=== PATIENT | male | born 1950 | race Caucasian/White ===

== ENCOUNTER → 2017-03-26 | Outpatient (CLI) | payer MEDICARE, OTHER ==
[2017-03-26 10:54] LABS: Blood Urea Nitrogen 15 mg/dL (9-20); Non-African American GFR(MDRD) >60 (>60 ml/min/1.73 sqM)
--- NOTE | 2017-03-26 12:20 | CT ---
EXAMINATION TYPE: CT soft tissue neck w con DATE OF EXAM: 03/26/2017 COMPARISON: NONE HISTORY: Patient complains of dysphagia, hoarseness of voice, drainage into neck, and generalized ant erior neck tenderness. CT DLP: 504.4 mGycm CONTRAST: Patient injected with 100 mL of Omnipaque 300. TECHNIQUE: Axial images at 3 mm thick sections. Reconstructed images in the coronal plane and sagitt al plane are reviewed. FINDINGS: Limited CT sections are obtained the lung apices. The lung apices appear clear. Aortopulmo lesa window appears clear. CT neck: The torus tubarius and fossa of Rosenmuller are normal. [employer] spaces are normal. Para nasal sinuses and mastoid air cells are clear. Parotid glands appear normal and symmetrical. Submandibular glands, are normal. Parapharyngeal spac es are normal. No suspicious adenopathy is evident. There is some fullness within the left aspect of the vallecula. This could be further evaluated with direct visualization There is subtle deviation of the anterior portion of the right vocal cord no underlying mass is ident ified. Direct visualization is recommended. Series 3 image 31 Thyroid as visualized is normal. Osseous structures are normal. Note is made of facet hypertrophy within the cervical spine. IMPRESSIONS: 1. Asymmetry within the anterior right portion of the vocal cord. Direct visualization could be perfo rmed. No underlying masses are evident. 2. Some fullness within the posterior left vallecula compared to the right. This could be evaluated w ith direct visualization.
== END | disposition home or self-care (01) ==
LOC: RADCTMAIN 10:14
PROVIDERS: ATTEND Otolaryngology
DX: J38.3 Other diseases of vocal cords (principal)
CPT/HCPCS: 82565; 84520; 70491; 36415; Q9967

== ENCOUNTER 2017-04-26 08:56 | Day surgery (SDC) | payer MEDICARE, OTHER ==
[2017-04-23 09:03] VITALS: BMI 36.6
[~2017-04-26 08:56] MED LIST: DEXAMETHASONE SOD PHOSPHATE 4 MG/ML 1 ML VIAL IV ONE; FAMOTIDINE 20 MG/2 ML VIAL IV ONE; HYDROmorphone 0.5 MG/0.5 ML SYRINGE IVP PRN; LACTATED RINGERS 1,000 ML IV SCH; MIDAZOLAM 2 MG/2 ML VIAL IV PRN; ONDANSETRON 4 MG/2 ML VIAL IVP ONE; ceFAZolin 1,000 MG in DEXTROSE/WATER 1 50ML.BAG IV ONE
[2017-04-26 09:42] VITALS: TEMP 98
[2017-04-26] MEDS ORDERED: LIDOCAINE 1% 20 ML VIAL (10MG/ML) FOR IV START INTRADERMA ONE (09:53)
[2017-04-26 10:18] LABS: Glucose,Whole Blood 140 mg/dL (75-99)
[2017-04-26] MEDS ORDERED: fentaNYL (PF) 50 MCG/ML 2 ML AMP ONE (10:34)
[2017-04-26] MEDS ORDERED: LIDOCAINE 1% INJ 10MG/ML (20 ML MDV) ONE (10:34)
[2017-04-26] MEDS ORDERED: PROPOFOL 10 MG/ML 20 ML VIAL IV ONE (10:34)
[2017-04-26] MEDS ORDERED: SUCCINYLCHOLINE CHLORIDE 100 MG/5 ML SYR IV ONE (10:34)
[2017-04-26] MEDS ORDERED: MIDAZOLAM 2 MG/2 ML VIAL ONE (10:34)
--- NOTE | 2017-04-26 10:55 | P.OP ---
Date of Procedure: 04/26/17 Preoperative Diagnosis: Hoarseness Lingual tonsillar hypertrophy Postoperative Diagnosis: Same Procedure(s) Performed: Direct microlaryngoscopy with biopsy left lingual tonsils Anesthesia: STEVIE Surgeon: Tico Shrestha Estimated Blood Loss (ml): 3 Pathology: other (Left-sided lingual tonsil) Condition: stable Disposition: PACU Indications for Procedure: This is a 66-year-old white male whose had difficulties with intermittent hoarseness as well as sore throats. CT showed nodular area on the right vocal cord and some fullness in the left vallecula although flexible laryngoscopy did not reveal any focal lesions on the vocal cords. There was more diffuse lingual tonsillar hypertrophy on flexible laryngoscopy Operative Findings: Diffuse lingual tonsillar hypertrophy although left greater than right and therefore biopsies were taken of the left-sided lingual tonsils, no laryngeal lesions were noted Description of Procedure: The patient was brought in the operative suite and placed in a supine position. The patient underwent induction of general anesthesia with oral endotracheal intubation without difficulty. The patient was prepped and draped in usual aseptic fashion. A gum guard was placed. Direct laryngoscopy was performed with systematic evaluation of the base of tongue vallecula both piriform sinuses post cricoid area and endolarynx. With the larynx in good visualization the suspension was placed and Zeiss microscope was used to evaluate the vocal cords and no abnormalities were noted. Therefore no biopsies were taken of the vocal cords. The laryngoscope was then repositioned at the base of tongue after inspection and palpation and the lingual tonsils were diffusely hypertrophy although a little bit more on the left and the right and therefore multiple microcup forceps biopsies were taken of the left lingual tonsils. Hemostasis was gained spontaneously. The patient was suctioned in the oropharynx hypopharynx and larynx. There was good hemostasis. The laryngoscope and tooth guard were removed. The patient was allowed to emerge from general anesthesia having tolerated procedure well was extubated in the operating suite and transferred to postop recovery area in satisfactory condition.
[2017-04-26] MEDS ORDERED: LACTATED RINGERS 1,000 ML IV ONE (11:43)
[2017-04-26 11:51] VITALS: RESP 16
[2017-04-26 12:04] VITALS: BP 122/65; PULSE 80
[2017-04-26 12:08] LABS: Glucose,Whole Blood 153 mg/dL (75-99)
== END 2017-04-26 12:33 | disposition home or self-care (01) ==
LOC: OR 08:56
PROVIDERS: ATTEND Otolaryngology
DX: J35.01 Chronic tonsillitis (principal); R49.0 Dysphonia; M19.90 Unspecified osteoarthritis, unspecified site; R42 Dizziness and giddiness; L30.9 Dermatitis, unspecified; J44.9 Chronic obstructive pulmonary disease, unspecified; M10.9 Gout, unspecified; H91.90 Unspecified hearing loss, unspecified ear; I25.2 Old myocardial infarction; H93.19 Tinnitus, unspecified ear; E11.9 Type 2 diabetes mellitus without complications; E07.9 Disorder of thyroid, unspecified; Z79.84 Long term (current) use of oral hypoglycemic drugs; Z79.1 Long term (current) use of non-steroidal anti-inflammatories (NSAID); Z79.82 Long term (current) use of aspirin; Z79.899 Other long term (current) drug therapy; Z88.5 Allergy status to narcotic agent; Z87.891 Personal history of nicotine dependence
CPT/HCPCS: 31536; 88305; J2250; J1100; J2405; J2001; J3010; J0330; J2704

== ENCOUNTER 2018-12-14 12:44 | Emergency (ER) | payer MEDICARE, OTHER ==
[2018-12-14 12:50] VITALS: BP 131/82; PULSE 87; RESP 18; TEMP 97.6
[2018-12-14] MEDS ORDERED: DIPH,PERTUS(ACELL)TETVAC-LF 0.5 ML VIAL IM ONE (13:19)
[2018-12-14] MEDS ORDERED: GELATIN SPONGE,ABSORB (LARGE) 1 EACH SPONGE TOPICAL STA (13:19)
--- NOTE | 2018-12-14 13:26 | ED ---
Wound/Laceration HPI - General Chief Complaint: Wound/Laceration Stated Complaint: Finger Injury/Lac Time Seen by Provider: 12/14/18 13:12 Source: patient, RN notes reviewed Mode of arrival: ambulatory Limitations: no limitations - History of Present Illness Initial Comments: 68-year-old male presents emergency Department chief complaint of laceration to his right hand third digit. Patient states that he is using a internal grinder tender and states that he looked like he got some discomfort in the driveway and states that he caught the internal grinder tender with his finger. Patient states he is unsure when his last tetanus was. He states there is a large amount of bleeding which has subsided at this time. Patient states that he removed from the skin on his distal finger. Patient's full range of motion no paresthesias. - Related Data Home Medications Medication Instructions Recorded Confirmed Levothyroxine Sodium [Synthroid] 75 mcg PO DAILY 02/05/15 04/26/17 Cyclobenzaprine [Flexeril] 5 mg PO HS 04/23/17 04/26/17 metFORMIN HCL [Glucophage] 500 mg PO BID 04/23/17 04/26/17 Allergies Allergy/AdvReac Type Severity Reaction Status Date / Time propoxyphene HCl AdvReac Unknown Nausea & Verified 12/14/18 12:51 [From Darvon] Vomiting Review of Systems ROS Statement: Those systems with pertinent positive or pertinent negative responses have been documented in the HPI. ROS Other: All systems not noted in ROS Statement are negative. Past Medical History Past Medical History: Diabetes Mellitus, Musculoskeletal Disorder, Thyroid Disorder Additional Past Medical History / Comment(s): PAST HX OF COPD, HAS 3 TUMORS IN HIS BACK., HEARING LOSS 45-50% IN BOTH EARS. History of Any Multi-Drug Resistant Organisms: None Reported Past Surgical History: Appendectomy, Cholecystectomy, Orthopedic Surgery Additional Past Surgical History / Comment(s): LEFT KNEE ARTHROSCOPY, RIGHT SHOULDER ARTHROSCOPY Past Anesthesia/Blood Transfusion Reactions: No Reported Reaction Past Psychological History: No Psychological Hx Reported Smoking Status: Former smoker Past Alcohol Use History: None Reported Past Drug Use History: None Reported - Past Family History Father Family Medical History: Cancer Mother Family Medical History: Cancer General Exam Limitations: no limitations General appearance: alert, in no apparent distress Head exam: Present: atraumatic, normocephalic, normal inspection Respiratory exam: Present: normal lung sounds bilaterally. Absent: respiratory distress, wheezes, rales, rhonchi, stridor Cardiovascular Exam: Present: regular rate, normal rhythm, normal heart sounds. Absent: systolic murmur, diastolic murmur, rubs, gallop, clicks Extremities exam: Present: other (Right hand third digit there is 2 cm x 1 cm skin avulsion at the distal tip with minimal active bleeding neurovascular intact Refill less than 2 seconds) Course Vital Signs 12/14/18 12:47 Temperature 97.6 F Pulse Rate 87 Respiratory 18 Rate Blood Pressure 131/82 O2 Sat by Pulse 97 Oximetry Medical Decision Making - Medical Decision Making 68-year-old male presented for finger laceration. He had a noted skin avulsion, Gelfoam was applied, patient's tetanus is updated. Disposition Clinical Impression: Avulsion of skin of finger Disposition: HOME SELF-CARE Condition: Stable Instructions (If sedation given, give patient instructions): Skin Avulsion (ED) Additional Instructions: Please return to the Emergency Department if symptoms worsen or any other concerns. Is patient prescribed a controlled substance at d/c from ED?: No Referrals: Elisa Acosta MD [Primary Care Provider] - 1-2 days Time of Disposition: 13:25
== END 2018-12-14 13:45 | disposition home or self-care (01) ==
LOC: EC 12:44
DX: S61.202A Unspecified open wound of right middle finger without damage to nail, initial encounter (principal); E11.9 Type 2 diabetes mellitus without complications; E07.9 Disorder of thyroid, unspecified; H91.90 Unspecified hearing loss, unspecified ear; Z87.891 Personal history of nicotine dependence; Z23 Encounter for immunization; Z90.49 Acquired absence of other specified parts of digestive tract; Z98.890 Other specified postprocedural states; Z79.84 Long term (current) use of oral hypoglycemic drugs; Z79.890 Hormone replacement therapy; Z79.899 Other long term (current) drug therapy; Z88.5 Allergy status to narcotic agent; W29.0XXA Contact with powered kitchen appliance, initial encounter; Y93.89 Activity, other specified
CPT/HCPCS: 90471; 90715; 99282

== ENCOUNTER → 2019-05-25 | Outpatient (CLI) | payer MEDICARE, OTHER | END | disposition home or self-care (01) | LOC: LABPAT 09:37 | PROVIDERS: ATTEND Orthopaedic Surgery | DX: Z01.812 Encounter for preprocedural laboratory examination (principal) | CPT/HCPCS: 87070 ==

== ENCOUNTER → 2019-06-01 | Outpatient (CLI) | payer MEDICARE, OTHER ==
--- NOTE | 2019-06-01 08:45 | XR ---
EXAMINATION TYPE: XR chest 2V DATE OF EXAM: 06/01/2019 COMPARISON: 07/26/2014 TECHNIQUE: PA and lateral views submitted. HISTORY: Presurgical FINDINGS: The lungs are clear and there is no pneumothorax, pleural effusion, or focal pneumonia. Hypertrophi c and degenerative changes of the spine. Heart size normal. No overt failure. Pleural-based thickenin g along the lower lobes bilaterally greater on the left are noted. Chronic rib deformity not excluded . Findings similar to prior exam. IMPRESSION: 1. No acute process.
== END | disposition home or self-care (01) ==
LOC: LABPAT 07:29
PROVIDERS: ATTEND Family Medicine
DX: Z01.818 Encounter for other preprocedural examination (principal)
CPT/HCPCS: 71046

== ENCOUNTER 2019-06-13 09:12 | Day surgery (SDC) | payer MEDICARE, OTHER ==
[2019-06-08 13:42] VITALS: BMI 36.4
--- NOTE | 2019-06-12 10:15 | HP ---
HISTORY AND PHYSICAL CHIEF COMPLAINT: Left knee pain. HISTORY OF PRESENT ILLNESS: The patient is a 68-year-old retired male who presents with progressive left knee pain secondary to osteoarthrosis for the past year. It has worsened recently. He has pain with any weightbearing activities. He notes the pain and stiffness along with swelling. He has tried medications with partial temporary relief. PAST MEDICAL HISTORY: Significant for COPD, type 2 diabetes, hypothyroidism, hypertension, neurofibromatosis, and osteoarthrosis. PAST SURGICAL HISTORY: Significant for carpal tunnel release, appendectomy, cholecystectomy, right shoulder arthroscopy. MEDICATIONS: Current medications include: 1. Metformin. 2. Levothyroxine. 3. Trulicity. 4. Lisinopril. ALLERGIES: He notes sensitivity to DARVON, however, no susu drug allergies. FAMILY HISTORY: Significant for cancer. SOCIAL HISTORY: Significant for previous heavy tobacco use; however, he quit in 2008. REVIEW OF SYSTEMS: Sixteen-point review of systems otherwise reviewed and is noncontributory. PHYSICAL EXAMINATION: On examination, the patient is approximately 5 feet 5 inches, 225 pounds of endomorphic habitus. HEENT exam is nonfocal. Neck is supple. He has painless passive motion of his left hip. Straight leg raise is negative. Active motion left knee -12 to 85 degrees of flexion. He has mild effusion. He is tender about the medial joint line. Collaterals are stable, Mat is negative, Mikel's is equivocal. He has genu varum alignment. His distal neurovascular exam appears intact in the left lower extremity. X-rays to include weightbearing notch lateral and Merchant views left knee obtained in the office show severe medial compartment osteoarthrosis with chondrocalcinosis of the medial and lateral compartments. IMPRESSION: 1. Left knee severe medial and patellofemoral compartment osteoarthrosis. 2. Left knee pseudogout. 3. Vbf-cesuqag-aehpfndqb diabetes. 4. History of chronic obstructive pulmonary disease. 5. Neurofibromatosis. RECOMMENDATIONS: I talked to the patient at length regarding his condition and treatment options. At this point, he is quite symptomatic and limited because of his osteoarthrosis despite conservative treatment. After a thorough discussion, he opts to proceed with surgery. We will plan to proceed with left total knee arthroplasty. Risks and benefits were discussed at length in layman's terms. We will institute DVT prophylaxis postoperatively. MMODL / IJN: [id number] /
[~2019-06-13 09:12] MED LIST changes: +ACETAMINOPHEN TAB 500 MG TAB PO ONE; +DEXAMETHASONE SOD PHOSPHATE 10 MG/ML 1 ML VIAL IV ONE; -DEXAMETHASONE SOD PHOSPHATE 4 MG/ML 1 ML VIAL IV ONE; -FAMOTIDINE 20 MG/2 ML VIAL IV ONE; +LIDOCAINE 1% 20 ML VIAL (10MG/ML) FOR IV START INTRADERMA PRN; +MELOXICAM 7.5 MG TAB PO ONE; +ROPIVACAINE 246.25 MG, EPINEPHrine 0.5 MG, KETOROLAC 30 MG, cloNIDine HCL/PF 80 MCG, WA... MISCELLANE ONE; +SCOPOLAMINE 1.5MG/72HR PATCH TRANSDERM ONE; +TRANEXAMIC ACID 1,000 MG in SODIUM CHLORIDE 0.9% 100 ML IVPB ONE; -ceFAZolin 1,000 MG in DEXTROSE/WATER 1 50ML.BAG IV ONE
[2019-06-13 09:50] LABS: Glucose,Whole Blood 190 mg/dL (75-99)
[2019-06-13] MEDS ORDERED: fentaNYL (PF) 50 MCG/ML 2 ML AMP IV ONE (10:00)
[2019-06-13] MEDS ORDERED: ROPIVACAINE 246.25 MG, EPINEPHrine 0.5 MG, KETOROLAC 30 MG, cloNIDine HCL/PF 80 MCG, WA... MISCELLANE ONE ×5 (10:06)
[2019-06-13] MEDS ORDERED: fentaNYL (PF) 50 MCG/ML 2 ML AMP ONE (10:48)
[2019-06-13] MEDS ORDERED: diphenhydrAMINE 50 MG/ML 1 ML VIAL ONE (10:48)
[2019-06-13] MEDS ORDERED: SODIUM CHLORIDE 0.9% 100 ML BAG ONE (10:48)
[2019-06-13] MEDS ORDERED: MIDAZOLAM 2 MG/2 ML VIAL ONE (10:48)
[2019-06-13] MEDS ORDERED: TRANEXAMIC ACID 1,000 MG/10 ML VIAL ONE (10:48)
[2019-06-13] MEDS ORDERED: PROPOFOL 10 MG/ML 20 ML VIAL IV ONE (10:48)
[2019-06-13] MEDS ORDERED: LACTATED RINGERS 1,000 ML IV ONE (11:15)
[2019-06-13] MEDS ORDERED: ROPIVACAINE 0.2%-NS ON-Q PUMP 1,090 MG, EMPTY PAIN BALL 1 EACH MISCELLANE PRN (12:21)
--- NOTE | 2019-06-13 12:21 | P.ANPRN ---
Procedure Note - Anesthesia - Nerve Block Performed Left Adductor Canal Infusion Time Out Performed: Yes ([id number]) Date of Procedure: 06/13/19 Procedure Start Time: 10:00 Procedure Stop Time: 10:06 Location of Patient: PreOp Indication: Acute Post-Operative Pain, Requested by Surgeon Specifically requested for management of pain by : Judah Quevedo Sedation Type: Sedate with meaningful contact maintained Preparation: Sterile Prep Position: Supine Catheter Depth at Skin (cm): 6 Catheter: Indwelling Needle Types: Pajunk Needle Gauge: 20 Ultrasound used to visualize needle placement: Yes Ultrasound used to observe medication spread: Yes Injectate: 0.5% Ropivacaine (see comment for volume) (20cc) Pain Paresthesia on Injection Noted: No Resistance on Injection: Normal Image Stored and Saved: Yes Events: Uneventful and Well Tolerated
[2019-06-13] MEDS ORDERED: HYDROmorphone 0.5 MG/0.5 ML SYRINGE IVP PRN (12:39)
[2019-06-13] MEDS ORDERED: MAGNESIUM HYDROXIDE 2,400 MG/10 ML CUP PO PRN (12:39)
[2019-06-13] MEDS ORDERED: ONDANSETRON 4 MG/2 ML VIAL IVP PRN (12:39)
[2019-06-13] MEDS ORDERED: NALOXONE 0.4 MG/ML 1 ML VIAL IV PRN (12:39)
[2019-06-13] MEDS ORDERED: traMADol 50 MG TAB PO PRN (12:39)
[2019-06-13] MEDS ORDERED: HYDROcodone/APAP 5-325MG 1 EACH TAB PO PRN (12:39)
[2019-06-13] MEDS ORDERED: ACETAMINOPHEN TAB 325 MG TAB PO PRN (12:39)
--- NOTE | 2019-06-13 13:08 | P.OP ---
Date of Procedure: 06/13/19 Preoperative Diagnosis: Left knee severe tricompartmental osteoarthrosis/pseudogout Postoperative Diagnosis: Same Procedure(s) Performed: Left total knee arthroplastycementedcruciate retaining Implants: Depuy Attune size 7 cemented femoral component, size 6 cemented tibial component, 9 mm articular surface, 38 mm cemented patellar component. This was a cruciate retaining implant. Anesthesia: regional, local, spinal Surgeon: Judah Quevedo Intensive Care Specialist #1: Yoandy Veras Estimated Blood Loss (ml): 50 Pathology: other (Bone fragments) Condition: stable Disposition: PACU Indications for Procedure: The patient is a 68-year-old gentleman who presents with progressive left knee pain secondary osteoarthrosis and pseudogout despite conservative measures. A discussion of the risks and benefits of operative intervention versus continued conservative measures was made with patient. He opted to proceed with surgery. Operative risks to include infection, neurovascular injury, development of blood clots, possible component loosening, possible component failure and need for subsequent procedures was discussed. Informed consent was obtained. Operative Findings: As below Description of Procedure: The patient was brought to the operating room, and after induction of spinal anesthesia the left lower extremity was prepped and draped in a normal fashion. The tourniquet was inflated to 270 mmHg. A longitudinal incision extending 3 finger breaths above the superior pole of the patella extending to the medial aspect the tibial tubercle was then made. The skin and subcutaneous tissues were divided sharply. Electrocautery was used for hemostasis. A medial parapatellar arthrotomy was then performed. The medial soft tissues to include the superficial and deep portions of the medial collateral ligament as well as the medial hamstring tendons were elevated subperiosteally. The proximal medial tibia osteophytes were carefully removed. The patella was everted. The knee was flexed. A portion of the retropatellar fat pad was excised sharply. The anterior cruciate ligament was sacrificed. A starting hole was made in the distal femur 1 cm anterior to the posterior cruciate origin. An intramedullary femoral guide was gently inserted planning on 5 valgus distal cut with 9 mm distal resection. The cutting block was pinned in place. The distal cut was then made. The posterior referencing sizing guide was utilized. 3 of external rotation was built into the system and verified off the trans- epicondylar axis and the posterior condyles. I felt size 7 was most appropriate. The cutting block was pinned in place. The anterior, posterior, and chamfer cuts were then made. The bone fragments were removed. A sulcus cut was then made with the appropriate guide. The trial size 7 femoral component was then placed and was fully seated. There was good anterior to posterior and medial to lateral fit. The distal peg holes were then drilled. The trial component was then removed. Attention was then paid towards preparing the proximal tibia. An extra medullary guide was utilized in line with the tibial shaft and second metatarsal distally. A 7 posterior slope was planned. I planned on 2 mm resection from the medial compartment. The cutting block was pinned in place. The proximal tibial cut was then made. The bone was removed in one fragment. The remnants of the medial and lateral menisci were excised the capsule junction with electrocautery. The tibia sized most appropriately at size 6. The posterior osteophytes off the distal femur were carefully removed with a curved osteotome. The trial tibial and femoral components were placed along with a 9 millimeters articular surface. I was able to obtain full flexion and extension with good stability with varus and valgus stress. After several flexion and extension cycles, the tibial rotation was marked with electrocautery in line with the medial one third of the tibial tubercle. Attention was then paid towards preparing the patella. A patella reamer was utilized taking this down to 14 mm of bone stock. A good flush cut was made. The patella sized most appropriately at 38 millimeters. The peg holes were then drilled. The trial component was placed. The knee was taken through a range of motion. I had good patellofemoral tracking with no hands technique. The trial components were then removed. The tibia was prepared in the appropriate rotation with appropriate drill and keel punch. The flexion and extension gaps were checked and felt to be symmetric. The posterior soft tissues were injected with ropivacaine. The bony surfaces were prepared with pulsatile lavage and dried. The deep tibial component was then cemented in place and was fully seated. Excess cement was removed. The femoral component was cemented in place and was fully seated. Again excess cement was removed. The trial 9 millimeters surface was then inserted in the knee was put in full extension. The patella component was cemented in place. After the cement had sufficiently hardened, the knee was again taken through a range of motion. Again there was good stability in flexion and extension with varus and valgus stress. The trial articular surface was then removed. The final articular surface was placed and was impacted. Care was taken to avoid any soft tissue interposition. Pulsatile lavage was again utilized. The tourniquet was deflated with approximately 60 minutes total tourniquet time. There was minimal drainage therefore a deep drain was not placed. The medial parapatellar arthrotomy was then closed with #2 Ethibond suture. The subcutaneous tissues were reapproximated interrupted 2-0 Vicryl sutures. The skin was reapproximated with 3-0 subarticular strata fix suture. Skin tape and adhesive was applied. A sterile dressing was applied. The patient was then awoken from sedation and transferred to recovery room in good condition. Blood loss was estimated at 50 milliliters. No complications were incurred. Sponge and needle counts were correct at the end the case. Carlos CARRERA assisted during the major components this case to include exposure, bone resection, and implantation.
[2019-06-13 13:30] LABS: Glucose,Whole Blood 244 mg/dL (75-99)
[2019-06-13] MEDS ORDERED: INSULIN ASPART (NovoLOG) 100 UNIT/ML VIAL SQ ONE (13:35)
--- NOTE | 2019-06-13 13:49 | XR ---
EXAMINATION TYPE: XR knee limited LT DATE OF EXAM: 06/13/2019 COMPARISON: None HISTORY: Postop alignment knee replacement TECHNIQUE: 2 view left knee FINDINGS: Tibial and femoral components of in place. No acute fractures are evident. Postsurgical rafaela nges are within soft tissues. IMPRESSION: 1. No acute fracture post knee replacement
[2019-06-13 16:48] LABS: Glucose,Whole Blood 337 mg/dL (75-99)
[2019-06-13] MEDS: INSULIN ASPART (NovoLOG) 100 UNIT/ML VIAL SQ SCH ×2 (16:58→20:18)
[2019-06-13] MEDS: metFORMIN 500 MG TAB PO SCH (17:53)
[2019-06-13 20:01] LABS: Glucose,Whole Blood 272 mg/dL (75-99)
[2019-06-13] MEDS ORDERED: SENNOSIDES-DOCUSATE SODIUM 1 EACH TAB PO SCH (21:00)
[2019-06-13] MEDS: HYDROcodone/APAP 5-325MG 1 EACH TAB PO PRN (22:30)
--- NOTE | 2019-06-13 23:24 | CONS ---
CONSULTATION REASON FOR CONSULTATION: Advise regarding diabetes requested by Dr. Quevedo. HISTORY OF PRESENT ILLNESS: This 68-year-old gentleman with a past medical history of multiple medical problems including history of diabetes, hypothyroidism, appendectomy, cholecystectomy, was admitted after left knee total arthroplasty by Dr. Quevedo. The blood sugar is slightly elevated. There is no history of fever, rigors or chills. No history of headache. No chest pain, palpitations, hematochezia or melena at this time. PAST MEDICAL HISTORY: History of diabetes, hearing deficit, DJD, hypothyroidism, history of appendectomy, cholecystectomy. MEDICATIONS: Prior to admission include home medications are: 1. Metformin 1000 mg p.o. b.i.d. 2. Crestor 5 mg. 3. Zestril 2.5 mg q.a.m. 4. Synthroid 75 mcg p.o. daily. 5. Trulicity 1.5 mg subcu. 6. Tylenol No.3 1 p.o. q.6h p.r.n. ALLERGIES: DARVON. FAMILY HISTORY: History of cancer in the family. SOCIAL HISTORY: Previous history of smoking. No history of current smoking or alcohol intake. REVIEW OF SYSTEMS: ENT: No diminished vision. No diminished hearing. CARDIOVASCULAR: No angina or palpitations. RESPIRATION: No cough or hemoptysis. GI no nausea or vomiting. no dysuria or hematuria. NERVOUS SYSTEM: No numbness or weakness. ALLERGY/IMMUNOLOGY: No asthma or hayfever. MUSCULOSKELETAL: As mentioned earlier. HEMATOLOGY/ONCOLOGY: No history of anemia. ENDOCRINE: Diabetes and hypothyroidism. CONSTITUTIONAL: As mentioned earlier. DERMATOLOGY: Negative. RHEUMATOLOGY: Negative. PSYCHIATRIC: As mentioned earlier. PHYSICAL EXAM: Patient is alert and oriented times three. Pulse is 72. Blood pressure 108/62. Respirations 16, temperature normal, pulse ox 97% on 2 L. HEENT: Conjunctivae normal. NECK: No jugular venous distention. CARDIOVASCULAR: S1, S2 muffled. RESPIRATORY: Breath sounds diminished in the bases. Bilateral scattered rhonchi and crackles. ABDOMEN: Soft, nontender. No mass palpable. LEGS status post knee arthroplasty. NERVOUS System as mentioned earlier. Moves all four limbs. No focal motor or sensory deficits. LYMPHATICS: No lymph nodes palpable in the neck, axillae or groin. SKIN: No ulcer, no rashes and no bleeding. JOINTS: No active deforming arthropathy. LABS: At this time shows: Accu-Cheks are 190, 245, 337. ASSESSMENT: 1. Status post left total knee arthroplasty. 2. Diabetes mellitus type 2. 3. Degenerative joint disease. 4. Hypothyroidism. 5. Appendectomy. 6. Cholecystectomy. 7. Remote history of nicotine dependence. RECOMMENDATIONS AND DISCUSSION: In this 68 -year-old gentleman who presented after surgery, at this time, I recommend to continue current medications, management and symptomatic treatment. I recommend Accu-Cheks a.c. and q.h.s. and insulin scale. The patient has received a dose of dexamethasone. We will continue to monitor. Resume the home medications. The patient may be asked to follow with primary physician closely after discharge. Thank you Dr. Quevedo for letting us participate in the care of this patient. REJIL / JORYN: [id number] / MTDD
[2019-06-14] MEDS ORDERED: LEVOTHYROXINE 75 MCG TAB PO SCH (06:30)
[2019-06-14] MEDS: HYDROcodone/APAP 5-325MG 1 EACH TAB PO PRN ×2 (06:30→11:33)
--- NOTE | 2019-06-14 07:30 | P.PN ---
Progress Note - Text Progress Note Date: 06/14/19 (630 AM) Patient was seen at bedside at 6:30 AM. Patient is postop day 1 from left total knee replacement with adductor canal catheter placed for pain . Ropivacaine 0.2% infusion running at 8 ml per hour. VAS score is 4.5/10. Patient denies side effects. Lower extremity sensation and motor function is intact. Patient has ambulated. Dressing clean dry and intact over catheter site
[2019-06-14 07:50] LABS: Glucose,Whole Blood 167 mg/dL (75-99)
[2019-06-14] MEDS: metFORMIN 500 MG TAB PO SCH (08:10)
[2019-06-14] MEDS: INSULIN ASPART (NovoLOG) 100 UNIT/ML VIAL SQ SCH ×2 (08:10→12:40)
[2019-06-14 08:22] LABS: Basophils % (A) 0 %; Eosinophils # (A) 0.1 k/uL (0-0.7); Eosinophils % (A) 1 %; HCT 37.7 % (39.0-53.0); HGB 12.7 gm/dL (13.0-17.5); Lymphocytes # (A) 1.8 k/uL (1.0-4.8); Lymphocytes % (A) 15 %; MCH 28.6 pg (25.0-35.0); MCHC 33.7 g/dL (31.0-37.0); MCV 85.1 fL (80.0-100.0); Mean Platelet Volume 7.2; Monocytes # (A) 0.8 k/uL (0-1.0); Monocytes % (A) 6 %; Neutrophils % (A) 76 %; Platelet Count 210 k/uL (150-450); RBC 4.44 m/uL (4.30-5.90); RDW 13.6 % (11.5-15.5); WBC 11.9 k/uL (3.8-10.6)
[2019-06-14] MEDS ORDERED: LISINOPRIL 2.5 MG TAB PO SCH (09:00)
[2019-06-14] MEDS ORDERED: ATORVASTATIN 10 MG TAB PO SCH (09:00)
[2019-06-14] MEDS ORDERED: RIVAROXABAN 10 MG TAB PO SCH (09:00)
[2019-06-14 09:07] VITALS: BP 108/68; PULSE 77; RESP 16; TEMP 98.1
[2019-06-14 12:01] LABS: Glucose,Whole Blood 263 mg/dL (75-99)
--- NOTE | 2019-06-14 12:39 | P.PN ---
Subjective Progress Note Date: 06/14/19 Principal diagnosis: status post left total knee arthroplasty patient Charla at bedside, he's resting comfortably. His pain is well- controlled. He's done very therapy. Denies any chest pain or shortness Objective - Vital Signs Vital signs: Vital Signs Temp 98.1 F 06/14/19 07:00 Pulse 77 06/14/19 07:00 Resp 16 06/14/19 07:00 BP 108/68 06/14/19 07:00 Pulse Ox 95 06/14/19 07:00 Intake & Output 06/13/19 06/14/19 06/14/19 18:59 06:59 18:59 Intake Total 2175 630 Output Total 50 Balance 2125 630 Weight 98 kg Intake: IV 2175 Oral 630 Output: Estimated Blood Loss 50 - Exam Left lower extremity: Incision is clean, dry, and intact. The exofin fusion tape is in good condition. There is minimal soft tissue swelling and ecchymosis surrounding the medial and lateral aspects of the incision. Calf is soft, no tenderness with palpation. Plantar flexion, dorsiflexion, EHL, FHL are intact. Sensory exam to light touch throughout the extremity is intact, dorsal pedis pulses 2+. - Labs CBC & Chem 7: 06/14/19 07:00 Labs: Abnormal Lab Results - Last 24 Hours (Table) 06/13/19 06/13/19 06/13/19 Range/Units 13:30 16:47 19:59 WBC (3.8-10.6) k/uL Hgb (13.0-17.5) gm/dL Hct (39.0-53.0) % Neutrophils # (1.3-7.7) k/uL POC Glucose (mg/dL) 244 H 337 H 272 H (75-99) mg/dL 06/14/19 06/14/19 06/14/19 Range/Units 07:00 07:39 11:50 WBC 11.9 H (3.8-10.6) k/uL Hgb 12.7 L (13.0-17.5) gm/dL Hct 37.7 L (39.0-53.0) % Neutrophils # 9.0 H (1.3-7.7) k/uL POC Glucose (mg/dL) 167 H 263 H (75-99) mg/dL Assessment and Plan Plan: Assessment: Postoperative day #1 status post left total knee arthroplasty Plan: Pain control, oral medication at discharge GI and DVT prophylaxis, Eliquis 2.5mg bid for 2 weeks Wound care instructions discussed Icing and elevating techniques discussed Medical recommendations Physical therapy and nursing after discharge Plan for discharge home today Time with Patient: Less than 30
--- NOTE | 2019-06-14 12:44 | P.DS ---
Providers Date of admission: 06/13/2019 Expected date of discharge: 06/14/19 Attending physician: Judah Quevedo Consults: 06/13/19 12:39 Consult Physician Routine Consulting Provider: Soha Ross Consult Reason/Comments: medical management Do you want consulting provider notified?: Yes Primary care physician: Elisa Acosta Hospital Course: Date of admission: 06/13/2019 Date of discharge: 06/14/2019 Admission diagnosis: Status post left total knee arthroplasty Discharge diagnosis: Same Attending physician: Dr. Quevedo Surgical procedures: Left total knee arthroplasty Brief history: Patient is a 68-year-old male with a history of progressive primary left knee osteoarthritis. At this point patient has failed conservative treatment measures and has opted to proceed with a elective left total knee arthroplasty. Hospital course: Details of patient's surgery can be found in operative report. Patient tolerated the procedure well and was subsequently transported to [facility]. Patient's orthopeidc and medical care was provided daily. Patient had daily laboratory tests performed for evaluation of overall blood counts. Patient had daily physical therapy to include strengthening range of motion as well as education with walker ambulation. Patient had daily CPM usage as part of their physical therapy program. Patient was treated with Xarelto for their postoperative DVT prophylaxis during their inpatient stay. Patient was noted to have a relatively uneventful postoperative course. Patient reported satisfactory pain control with oral pain medications by postoperative day 0. Patient showed satisfactory progress with physical therapy. Patient moved steadily through the program and had no difficulty meeting the goals by postoperative day 1. Given patient's otherwise satisfactory course and having met physical therapy goals, plan is to discharge patient home on postoperative day 1. Discharge condition/disposition: Patient will be discharged home in stable condition. Discharge medications: Instructions are given on resumption of patient's normal daily medications per primary care recommendation, in addition patient will be prescribed Mcallister 5 mg/25 mg, Colace 100mg, Eliquis 2.5mg. Discharge instructions: 1. Wound care and infection precautions, keep incision dry and covered while showering, no lotions, creams, moisturizers. No soaking, tubs, pools, hottubs. Do not scrub over the incision. 2. Weight-bear as tolerated] with walker / cane until follow-up. 3. Ice and elevate when necessary. Do not exceed 20 minutes per hour with ice pack. 4. Utilize compression sleeve until seen at first follow up appointment. 5. Visiting nursing care. 6. Home physical therapy [including home CPM]. 7. Pain meds and anticoagulants per prescription. 8. Pain medication has potential to cause constipation. Increase oral fluid and fiber intake. Contact primary care provider if you have not had a bowel movement within 48 hours after discharge 9. No anti-inflammatory medication until discussed at first post operative visit, this including Motrin, Aleve, Mobic, Diclofenac. 10. Follow up in office at 2 weeks postop with Carlos Veras PA-C 11. Follow up with your primary care doctor 7-10 days after discharge. 12. Contact [facility] with any questions, . Procedures: Left total knee arthroplasty Patient Condition at Discharge: Good Plan - Discharge Summary Discharge Rx Participant: Yes New Discharge Prescriptions: New Docusate [Colace] 100 mg PO DAILY #30 capsule Apixaban [Eliquis] 2.5 mg PO BID #60 tab Hydrocodone/Acetaminophen [Mcallister 5-325] 1 - 2 each PO Q6HR PRN #56 tab PRN Reason: Pain No Action Levothyroxine Sodium [Synthroid] 75 mcg PO DAILY Acetaminophen-Codeine 300-30mg [Tylenol w/codeine #3] 1 tab PO Q6H PRN PRN Reason: Pain Rosuvastatin Calcium 5 mg PO DAILY Lisinopril [Zestril] 2.5 mg PO QAM metFORMIN HCL [Glucophage] 1,000 mg PO BID Dulaglutide [Trulicity] 1.5 mg SQ SYKES Discharge Medication List Levothyroxine Sodium [Synthroid] 75 mcg PO DAILY 02/05/15 [History] Acetaminophen-Codeine 300-30mg [Tylenol w/codeine #3] 1 tab PO Q6H PRN 06/08/19 [History] Dulaglutide [Trulicity] 1.5 mg SQ SYKES 06/08/19 [History] Lisinopril [Zestril] 2.5 mg PO QAM 06/08/19 [History] Rosuvastatin Calcium 5 mg PO DAILY 06/08/19 [History] metFORMIN HCL [Glucophage] 1,000 mg PO BID 06/08/19 [History] Apixaban [Eliquis] 2.5 mg PO BID #60 tab 06/14/19 [Rx] Docusate [Colace] 100 mg PO DAILY #30 capsule 06/14/19 [Rx] Hydrocodone/Acetaminophen [Mcallister 5-325] 1 - 2 each PO Q6HR PRN #56 tab 06/14/19 [Rx] Follow up Appointment(s)/Referral(s): [facility] [NON-STAFF] - As Needed (Continuous Passive Motion knee machine) Elisa Acosta MD [Primary Care Provider] - 06/21/19 12:30 pm [facility], [NON-STAFF] - As Needed Yoandy Veras PAC [PHYSICIAN RESEARCH ENGINEER [employer]MENT] - 06/28/19 3:50 pm Patient Instructions/Handouts: *Surgery [facility] - On-Q Pain Pump Discharge Instructions, Knee Replacement (DC) Activity/Diet/Wound Care/Special Instructions: Orthopedic Discharge Instructions: 1. Wound care and infection precautions, keep incision dry and covered while showering, no lotions, creams, moisturizers. No soaking, pools, hot tubs. Do not scrub over incision. 2. Weight-bear as tolerated with walker / cane until follow-up. 3. Ice and elevate when necessary. Do not exceed 20 minutes per hour with ice pack. 4. Utilize compression sleeve until seen at first follow up appointment. 5. Pain meds and anticoagulants per prescription. 6. Pain medication has potential to cause constipation. Increase oral fluid and fiber intake. Contact primary care provider if you have not had a bowel movement within 48 hours after discharge. 7. No anti-inflammatory medication until discussed at first post operative visit, this including Motrin, Aleve, Mobic, Diclofenac. 8. Follow up in office at 2 weeks postop with Carlos Veras PA-C 9. Follow up with your primary care doctor 7-10 days after discharge. 10. Contact [facility] with any questions, . Discharge Disposition: HOME WITH HOME HEALTH SERVICES
--- NOTE | 2019-06-14 22:22 | PN ---
PROGRESS NOTE DATE OF SERVICE: 06/14/2019 This 68-year-old gentleman who was admitted with left total knee arthroplasty is improving significantly. No chest pain. No palpitations. No fevers. PHYSICAL EXAMINATION: Patient is alert and oriented times three. Pulse is 77. Blood pressure 108/68. Respirations 16. Temperature is 98.1, pulse ox 94% on room air. HEENT: Conjunctivae normal. NECK: No jugular venous distention. CARDIOVASCULAR: S1, S2 muffled. RESPIRATORY: Breath sounds diminished in the bases. No rhonchi. No crackles. ABDOMEN: Soft, nontender. LEGS: Status post knee arthroplasty. NERVOUS SYSTEM: No focal deficits. LABORATORY DATA: Accu-Cheks 163, 263. WBC 11.9. ASSESSMENT: 1. Status post left total knee arthroplasty. 2. Diabetes mellitus, type 2. 3. Degenerative joint disease. 4. Hypothyroidism. 5. Appendectomy. 6. Cholecystectomy. 7. Remote history of nicotine dependence. RECOMMENDATIONS AND DISCUSSION: I recommend to continue the current medications, continue with symptomatic treatment. Resume the home medications. Follow closely with Dr. Elisa Acosta. Accu-Cheks before meals and at bedtime. Further recommendations per Orthopedic Surgery. Further recommendations to follow. MMODL / IJN: [id number] /
[2019-06-18] MEDS ORDERED: NON FORMULARY DRUG (Dulaglutide [Trulicity] 1.5 MG) SQ SCH (09:00)
== END 2019-06-14 14:05 | disposition home health service (06) ==
LOC: OR 09:12 → 4SSUR 12:40 → OR 06-14 14:05
PROVIDERS: ATTEND Orthopaedic Surgery
DX: M17.12 Unilateral primary osteoarthritis, left knee (principal); M11.262 Other chondrocalcinosis, left knee; I10 Essential (primary) hypertension; J44.9 Chronic obstructive pulmonary disease, unspecified; Q85.00 Neurofibromatosis, unspecified; E03.9 Hypothyroidism, unspecified; E11.9 Type 2 diabetes mellitus without complications; Z82.49 Family history of ischemic heart disease and other diseases of the circulatory system; Z79.84 Long term (current) use of oral hypoglycemic drugs; Z79.890 Hormone replacement therapy; Z79.899 Other long term (current) drug therapy; Z98.52 Vasectomy status; Z90.49 Acquired absence of other specified parts of digestive tract; Z98.890 Other specified postprocedural states; Z80.41 Family history of malignant neoplasm of ovary; Z88.5 Allergy status to narcotic agent; Z79.01 Long term (current) use of anticoagulants; Z87.891 Personal history of nicotine dependence
CPT/HCPCS: 97161; 64448; 76942; 85025; 88300; 73560; 27447; C1713; C1776; J2250; J1200; J1100; J0690 ×2; J2405; J3010; J2704; J2795

== ENCOUNTER → 2019-11-03 | Outpatient (CLI) | payer MEDICARE, OTHER | END | disposition home or self-care (01) | LOC: LABWHC1 13:35 | PROVIDERS: ATTEND Internal Medicine Interventional Cardiology | DX: Z11.59 Encounter for screening for other viral diseases (principal) ==

== ENCOUNTER 2019-11-07 08:32 | Day surgery (SDC) | payer MEDICARE, OTHER ==
[2019-11-03 14:53] VITALS: BMI 36.4
--- NOTE | 2019-11-06 11:34 | HP ---
HISTORY AND PHYSICAL CHIEF COMPLAINT: Left knee stiffness. HISTORY OF PRESENT ILLNESS: The patient is a 69-year-old retired gentleman who presents with left knee stiffness after previously undergoing total knee arthroplasty June 13, 2019. He had an otherwise uncomplicated postoperative course, except he did have therapy canceled because of the COVID-19 pandemic. PAST MEDICAL HISTORY: Significant for [id number] diabetes, arthritis and hypothyroidism. PAST SURGICAL HISTORY: Significant for left total knee arthroplasty. CURRENT MEDICATIONS: Metformin and his thyroid supplement. ALLERGIES: Sensitivity Wes Von; however, no susu drug allergies. FAMILY HISTORY: Noncontributory. SOCIAL HISTORY: Negative for current tobacco or alcohol use. REVIEW OF SYSTEMS: Sixteen point review of systems otherwise reviewed and is noncontributory. PHYSICAL EXAMINATION: On examination, the patient is approximately 5 foot 5, 220 pounds of endomorphic habitus. HEENT: Exam is nonfocal. Neck is supple. He has painless passive motion of his left hip. On examination of the left knee, he has no effusion. The incision is well healed. There is no warmth or erythema. Active motion -5 to 85 degrees of flexion. He is stable to varus and valgus stress. Homans are negative. His distal neurovascular appears intact in the left lower extremity. IMPRESSION: Status post left total knee arthroplasty with arthrofibrosis. RECOMMENDATIONS: I talked to the patient at length regarding his condition and treatment options. After a thorough discussion, he opts to proceed with manipulation under anesthesia. Utilizing IV sedation, risks and benefits were discussed at length in layman's terms. MMODL / IJN: [id number] /
[~2019-11-07 08:32] MED LIST changes: -ACETAMINOPHEN TAB 500 MG TAB PO ONE; -DEXAMETHASONE SOD PHOSPHATE 10 MG/ML 1 ML VIAL IV ONE; +LIDOCAINE 1% (10MG/ML) FOR IV START INTRADERMA PRN; -LIDOCAINE 1% 20 ML VIAL (10MG/ML) FOR IV START INTRADERMA PRN; -MELOXICAM 7.5 MG TAB PO ONE; -MIDAZOLAM 2 MG/2 ML VIAL IV PRN; -ONDANSETRON 4 MG/2 ML VIAL IVP ONE; +Pre Op ABX Message 1 EACH MISC MISCELLANE ONE; -ROPIVACAINE 246.25 MG, EPINEPHrine 0.5 MG, KETOROLAC 30 MG, cloNIDine HCL/PF 80 MCG, WA... MISCELLANE ONE; -SCOPOLAMINE 1.5MG/72HR PATCH TRANSDERM ONE; -TRANEXAMIC ACID 1,000 MG in SODIUM CHLORIDE 0.9% 100 ML IVPB ONE
[2019-11-07 09:07] LABS: Glucose,Whole Blood 280 mg/dL (75-99)
[2019-11-07] MEDS ORDERED: LIDOCAINE 1% INJ 10MG/ML (20 ML MDV) ONE (10:03)
[2019-11-07] MEDS ORDERED: PROPOFOL 10 MG/ML 20 ML VIAL IV ONE (10:03)
--- NOTE | 2019-11-07 10:12 | P.OP ---
Date of Procedure: 11/07/19 Preoperative Diagnosis: Left knee arthrofibrosis status post total knee arthroplasty Postoperative Diagnosis: Same Procedure(s) Performed: Manipulation under anesthesia left knee Anesthesia: MAC Surgeon: Judah Quevedo Estimated Blood Loss (ml): 0 Pathology: none sent Condition: stable Disposition: PACU Indications for Procedure: The patient's a 69-year-old male who underwent left total knee arthroplasty previously who had persistent stiffness despite adequate rehabilitation. A discussion of the risks and benefits of operative intervention manipulation under anesthesia was made with patient. He opted to proceed. Risks of this procedure to include fracture, tendon rupture, possible recurrence of stiffness and need for subsequent procedures was discussed. Informed consent was obtained. Operative Findings: As below Description of Procedure: The patient was brought to the recovery room, and after induction of IV sedation the left knee was gently manipulated. I was able to obtain 125 of flexion with full extension. Moderate adhesions were encountered. He was then monitored until fully awake. No complications were incurred. There was no blood loss.
[2019-11-07 10:22] VITALS: TEMP 97.6
[2019-11-07 10:29] VITALS: RESP 18
[2019-11-07 10:30] LABS: Glucose,Whole Blood 253 mg/dL (75-99)
[2019-11-07 11:34] VITALS: BP 133/78; PULSE 67
== END 2019-11-07 11:49 | disposition home or self-care (01) ==
LOC: OR 08:32
PROVIDERS: ATTEND Orthopaedic Surgery
DX: M24.662 Ankylosis, left knee (principal); E11.9 Type 2 diabetes mellitus without complications; M19.90 Unspecified osteoarthritis, unspecified site; E03.9 Hypothyroidism, unspecified; J44.9 Chronic obstructive pulmonary disease, unspecified; Z97.2 Presence of dental prosthetic device (complete) (partial); Z79.899 Other long term (current) drug therapy; Z79.84 Long term (current) use of oral hypoglycemic drugs; Z79.890 Hormone replacement therapy; Z88.6 Allergy status to analgesic agent; Z88.5 Allergy status to narcotic agent
CPT/HCPCS: 27570; J2001; J2704

== ENCOUNTER 2020-07-23 08:50 | Day surgery (SDC) | payer MEDICARE, OTHER ==
[2020-07-22 14:37] VITALS: BMI 35.7
--- NOTE | 2020-07-22 15:28 | HP ---
HISTORY AND PHYSICAL CHIEF COMPLAINT: Left knee stiffness. HISTORY OF PRESENT ILLNESS: Patient is a 69-year-old retired male who presents with persistent left knee stiffness after undergoing total knee arthroplasty in June of 2019. Subsequently, he had a manipulation performed, however, had a hard time attending therapy after that. He is having persistent stiffness and some pain. He does walk without any assistive devices. PAST MEDICAL HISTORY: Significant for COPD, type 2 diabetes, hypothyroidism, neurofibromatosis. PAST SURGICAL HISTORY: Significant for appendectomy, carpal tunnel release, cholecystectomy, right shoulder surgery, left total knee arthroplasty. CURRENT MEDICATIONS: Metformin and thyroid medication. ALLERGIES: He notes sensitivity to DARVON; however, no susu drug allergies. FAMILY HISTORY: Significant for cancer. SOCIAL HISTORY: Significant for 2-1/2 pack per day tobacco use; however, he quit in 2008. REVIEW OF SYSTEMS: Sixteen-point review of systems otherwise reviewed and is noncontributory. PHYSICAL EXAMINATION: On examination, the patient is approximately 5 feet 5 inches, 220 pounds of endomorphic habitus. HEENT exam is nonfocal. Neck is supple. He has painless passive motion left hip. Straight leg raise is negative. On examination of his left knee, the incision is well healed. There is no warmth or erythema. He has no real joint line tenderness. Active motion -12 to 75 degrees of flexion. He is stable to varus and valgus stress at full extension and 30 degrees of flexion. His distal neurovascular exam appears intact in the left lower extremity. X-rays of the left knee obtained in the office show a total knee arthroplasty in overall good alignment. IMPRESSIONS: Status post left total knee arthroplasty-arthrofibrosis. RECOMMENDATION: I talked to the patient at length regarding his condition along with treatment options. At this point, he notes he is quite limited because of his lack of motion. After thorough discussion, he opts to proceed with manipulation under anesthesia. We will start therapy directly after this in addition to a Medrol Dosepak. Risks and benefits were discussed at length in layman's terms. MMODL / IJN: [id number] /
[~2020-07-23 08:50] MED LIST changes: +DEXAMETHASONE SOD PHOSPHATE 4 MG/ML 1 ML VIAL IV ONE; +MIDAZOLAM 2 MG/2 ML VIAL IV PRN; +ONDANSETRON 4 MG/2 ML VIAL IVP ONE; +fentaNYL (PF) 50 MCG/ML 2 ML AMP IV PRN
[2020-07-23 09:21] VITALS: TEMP 98
[2020-07-23 09:21] LABS: Glucose,Whole Blood 203 mg/dL (75-99)
[2020-07-23] MEDS ORDERED: IV FLUID CONTINUATION 1,000 ML IV ONE (09:55)
[2020-07-23] MEDS ORDERED: MIDAZOLAM 2 MG/2 ML VIAL ONE (10:09)
[2020-07-23] MEDS ORDERED: fentaNYL (PF) 50 MCG/ML 2 ML AMP ONE (10:09)
[2020-07-23] MEDS ORDERED: PROPOFOL 10 MG/ML 20 ML VIAL IV ONE (10:09)
--- NOTE | 2020-07-23 10:19 | P.OP ---
Date of Procedure: 07/23/20 Preoperative Diagnosis: Status post left total knee arthroplasty with arthrofibrosis Postoperative Diagnosis: Same Procedure(s) Performed: Manipulation under anesthesia left knee Anesthesia: MAC Surgeon: Judah Quevedo Estimated Blood Loss (ml): 0 Pathology: none sent Condition: stable Disposition: PACU Indications for Procedure: The patient's a 69-year-old male who underwent left total knee arthroplasty last year with subsequent manipulation under anesthesia but had is rehabilitation interrupted by Covid. He presented with persistent stiffness despite conservative measures. A discussion of risks and benefits of his options were made with patient. He opted to proceed with repeat manipulation. Specific risks to include fracture, tendon rupture, recurrence of stiffness, possible need for subsequent procedures was discussed. Informed consent was obtained. Operative Findings: As below Description of Procedure: The patient was brought to the recovery room, and after induction of IV sedation the left knee was then gently manipulated. I was able to obtain 110 of flexion. Moderate adhesions were encountered. I was able to obtain -10 full extension. I felt this was a significant improvement. He was then monitored until fully awake. There was no blood loss. No complications were incurred.
[2020-07-23 10:34] LABS: Glucose,Whole Blood 238 mg/dL (75-99)
[2020-07-23 10:37] VITALS: RESP 16
[2020-07-23] MEDS ORDERED: INSULIN ASPART (NovoLOG) 100 UNIT/ML VIAL SQ ONE (10:41)
[2020-07-23 11:22] VITALS: BP 150/83; PULSE 71
[2020-07-23 11:27] LABS: Glucose,Whole Blood 210 mg/dL (75-99)
== END 2020-07-23 11:53 | disposition home or self-care (01) ==
LOC: OR 08:50
PROVIDERS: ATTEND Orthopaedic Surgery
DX: T84.82XA Fibrosis due to internal orthopedic prosthetic devices, implants and grafts, initial encounter (principal); M23.8X2 Other internal derangements of left knee; Z96.652 Presence of left artificial knee joint; E11.9 Type 2 diabetes mellitus without complications; J44.9 Chronic obstructive pulmonary disease, unspecified; E03.9 Hypothyroidism, unspecified; Q85.00 Neurofibromatosis, unspecified; Z88.5 Allergy status to narcotic agent; Z98.890 Other specified postprocedural states; Z90.49 Acquired absence of other specified parts of digestive tract; Z79.84 Long term (current) use of oral hypoglycemic drugs; Z87.891 Personal history of nicotine dependence; Z97.2 Presence of dental prosthetic device (complete) (partial); Z88.8 Allergy status to other drugs, medicaments and biological substances; Z88.6 Allergy status to analgesic agent; Z79.890 Hormone replacement therapy; Z80.9 Family history of malignant neoplasm, unspecified
CPT/HCPCS: 27570; J2250; J1100; J2405; J3010; J2704; J1170

== ENCOUNTER → 2020-10-23 | Outpatient (CLI) | payer MEDICARE, OTHER ==
[2020-10-23 10:54] LABS: Basophils % (A) 1 %; Eosinophils # (A) 0.2 k/uL (0-0.7); Eosinophils % (A) 3 %; HGB 14.6 gm/dL (13.0-17.5); Lymphocytes # (A) 1.6 k/uL (1.0-4.8); Lymphocytes % (A) 24 %; MCH 28.4 pg (25.0-35.0); MCHC 32.4 g/dL (31.0-37.0); MCV 87.5 fL (80.0-100.0); Mean Platelet Volume 6.7; Monocytes # (A) 0.4 k/uL (0-1.0); Monocytes % (A) 6 %; Neutrophils # (A) 4.2 k/uL (1.3-7.7); Neutrophils % (A) 63 %; Platelet Count 203 k/uL (150-450); RBC 5.15 m/uL (4.30-5.90); RDW 14.3 % (11.5-15.5); WBC 6.7 k/uL (3.8-10.6)
[2020-10-23 11:02] LABS: Potassium 4.9 mmol/L (3.5-5.1)
[2020-10-23 11:11] LABS: INR 0.9 (<1.2); Prothrombin Time 10.2 sec (9.0-12.0)
--- NOTE | 2020-10-23 14:07 | XR ---
EXAMINATION TYPE: XR chest 2V DATE OF EXAM: 10/23/2020 COMPARISON: 06/01/2019 HISTORY: Presurgical TECHNIQUE: Frontal and lateral views of the chest are obtained. FINDINGS: There is no focal air space opacity, pleural effusion, or pneumothorax seen. The cardiac silhouette size is within normal limits. There is eventration of right hemidiaphragm. Surgical clips are present in the upper abdomen. The osseous structures are intact. IMPRESSION: No acute cardiopulmonary process.
== END | disposition home or self-care (01) ==
LOC: LABPAT 09:28
PROVIDERS: ATTEND Orthopaedic Surgery
DX: Z01.818 Encounter for other preprocedural examination (principal); M24.612 Ankylosis, left shoulder; Z22.322 Carrier or suspected carrier of Methicillin resistant Staphylococcus aureus
CPT/HCPCS: 36415; 71046; 80051; 85025; 85610; 87070

== ENCOUNTER 2020-10-29 06:03 | Day surgery (SDC) | payer MEDICARE, OTHER ==
--- NOTE | 2020-10-24 09:04 | HP ---
HISTORY AND PHYSICAL CHIEF COMPLAINT: Left knee stiffness. HISTORY OF PRESENT ILLNESS: The patient is a 70-year-old retired male who presents with left knee stiffness after undergoing total knee arthroplasty June 13, 2019. He subsequently underwent 2 attempted manipulations with recurrence of his stiffness despite adequate rehabilitation. He notes he is having difficult time getting up from a seated position and going up and down stairs. PAST MEDICAL HISTORY: Significant for COPD, type 2 diabetes, hypothyroidism, and neurofibromatosis. PAST SURGICAL HISTORY: Significant for appendectomy, carpal tunnel release, cholecystectomy, right shoulder surgery in addition to left total knee arthroplasty. CURRENT MEDICATIONS: Metformin and his thyroid medication. ALLERGIES: He notes allergies to DARVON. FAMILY HISTORY: Significant for cancer. SOCIAL HISTORY: Significant for previous tobacco use. REVIEW OF SYSTEMS: Sixteen-point review of systems otherwise reviewed and is noncontributory. PHYSICAL EXAMINATION: On examination, the patient is approximately 5 feet 5 inches, 220 pounds of endomorphic habitus. HEENT exam is nonfocal. Neck is supple. He has painless passive motion of his left hip. On examination of the left knee, the incision is well healed. There is no warmth or erythema. He has mild medial patellar tenderness and some suprapatellar tenderness. No significant extensor lag is noted. Active motion -10 to 75 degrees of flexion. He is stable to varus and valgus stress. Homans are negative. His distal neurovascular exam appears intact in the left lower extremity. X-rays of the left knee obtained in the office show a total knee arthroplasty in overall good alignment. IMPRESSION: 1. Status post left total knee arthroplasty with arthrofibrosis. 2. History of chronic obstructive pulmonary disease. 3. History of neurofibromatosis. RECOMMENDATIONS: I talked to the patient at length regarding his condition and treatment options. At this point, he is significantly stiff despite multiple treatment modalities. After thorough discussion, he opts to proceed with surgery. We will plan to proceed with revision left total knee arthroplasty with polyethylene exchange in addition to lysis of adhesions and synovectomy. Risks and benefits were discussed at length in layman's terms. MMODL / JORYN: [id number] /
[2020-10-25 09:43] VITALS: BMI 36.6
[~2020-10-29 06:03] MED LIST changes: +ACETAMINOPHEN TAB 500 MG TAB PO PRN; -DEXAMETHASONE SOD PHOSPHATE 4 MG/ML 1 ML VIAL IV ONE; -HYDROmorphone 0.5 MG/0.5 ML SYRINGE IVP PRN; -LACTATED RINGERS 1,000 ML IV SCH; -LIDOCAINE 1% (10MG/ML) FOR IV START INTRADERMA PRN; +MELOXICAM 7.5 MG TAB PO PRN; -MIDAZOLAM 2 MG/2 ML VIAL IV PRN; -ONDANSETRON 4 MG/2 ML VIAL IVP ONE; -Pre Op ABX Message 1 EACH MISC MISCELLANE ONE; +ROPIVACAINE 246.25 MG, EPINEPHrine 0.5 MG, KETOROLAC 30 MG, cloNIDine HCL/PF 80 MCG, WA... MISCELLANE PRN; +TRANEXAMIC ACID 1,000 MG in SODIUM CHLORIDE 0.9% 100 ML IVPB PRN; -fentaNYL (PF) 50 MCG/ML 2 ML AMP IV PRN
[2020-10-29] MEDS ORDERED: DEXAMETHASONE SOD PHOSPHATE 4 MG/ML 1 ML VIAL IV ONE (06:14)
[2020-10-29] MEDS ORDERED: MIDAZOLAM 2 MG/2 ML VIAL IV PRN (06:14)
[2020-10-29] MEDS ORDERED: LIDOCAINE 1% (10MG/ML) FOR IV START INTRADERMA PRN (06:14)
[2020-10-29 06:55] LABS: Glucose,Whole Blood 233 mg/dL (75-99)
[2020-10-29] MEDS ORDERED: HYDROmorphone 0.5 MG/0.5 ML SYRINGE IVP PRN (07:00)
[2020-10-29] MEDS: ONDANSETRON 4 MG/2 ML VIAL IVP ONE ×2 (07:00→10:09)
[2020-10-29] MEDS ORDERED: MIDAZOLAM 2 MG/2 ML VIAL IV ONE (07:20)
[2020-10-29] MEDS ORDERED: GLYCOPYRROLATE 0.2 MG/ML 2 ML VIAL ONE (07:41)
[2020-10-29] MEDS ORDERED: PROPOFOL 10 MG/ML 20 ML VIAL IV ONE (07:41)
[2020-10-29] MEDS ORDERED: fentaNYL (PF) 50 MCG/ML 2 ML AMP ONE (07:41)
[2020-10-29] MEDS ORDERED: LIDOCAINE 1% INJ 10MG/ML (20 ML MDV) ONE (07:41)
[2020-10-29] MEDS ORDERED: MIDAZOLAM 2 MG/2 ML VIAL ONE (07:41)
[2020-10-29] MEDS ORDERED: NEOSTIGMINE 1 MG/ML 10 ML VIAL ONE (07:41)
[2020-10-29] MEDS ORDERED: SUCCINYLCHOLINE CHLORIDE 100 MG/5 ML SYR IV ONE (07:41)
[2020-10-29] MEDS ORDERED: ROPIVACAINE 5 MG/ML 30 ML VIAL ONE (07:41)
[2020-10-29] MEDS ORDERED: ROCURONIUM 10 MG/ML (5 ML VIAL) IV ONE (07:41)
[2020-10-29] MEDS ORDERED: SODIUM CHLORIDE 0.9% (PF) 10 ML VIAL ONE (07:41)
[2020-10-29] MEDS ORDERED: HYDROmorphone (PF) 1 MG/ML ONE (07:41)
[2020-10-29] MEDS: LACTATED RINGERS 1,000 ML IV SCH ×2 (07:44→23:51)
[2020-10-29] MEDS ORDERED: LACTATED RINGERS 1,000 ML IV ONE (08:30)
[2020-10-29] MEDS ORDERED: NALOXONE 0.4 MG/ML 1 ML VIAL IV PRN (09:02)
[2020-10-29] MEDS ORDERED: ROPIVACAINE 0.2%-NS ON-Q PUMP 1,090 MG, EMPTY PAIN BALL 1 EACH MISCELLANE PRN (09:27)
--- NOTE | 2020-10-29 09:35 | P.OP ---
Date of Procedure: 10/29/20 Preoperative Diagnosis: Left knee arthrofibrosis status post total knee arthroplasty Postoperative Diagnosis: Same Procedure(s) Performed: Revision left total knee arthroplastypolyethylene exchange/manipulation and anesthesia/synovectomy of the medial, lateral, and patellofemoral compartments Implants: Depuy Attune 9 mm polyethylene Anesthesia: joe HUBBARD Surgeon: Judah Quevedo Reduction Furnace Operator Helper #1: Phu Long Estimated Blood Loss (ml): 50 Pathology: none sent Condition: stable Disposition: PACU Indications for Procedure: The patient's a 70-year-old male who presents after undergoing left total knee arthroplasty last year with persistent stiffness despite adequate rehabilitation and attempted manipulation. A discussion of the risks and benefits of operative intervention versus continued conservative measures was made with patient. He opted to proceed with surgery. Specific risks of surgery to include infection, neurovascular injury, development of blood clots, possible recurrence of stiffness, possible fracture, possible tendon rerupture and need for subsequent procedures was discussed. Informed consent was obtained. Operative Findings: As below Description of Procedure: Patient was brought to the operating room, and after induction of general anesthesia examined the left knee. Gentle manipulation was performed obtaining 120 of flexion. I was also to obtain -5 full extension. The left lower extremity was prepped and draped in normal fashion. The tourniquet was inflated to 270 mmHg. The previous midline incision was utilized. Skin and subcu c hanged tissues were divided sharply. Electrocautery was used for hemostasis. A medial parapatellar arthrotomy is performed. The medial soft tissues to include the superficial and deep portions medial collateral ligament as well as the medial hamstring tendons were elevated subperiosteally. A portion of the retropatellar fat pad was excised sharply. I was able to sublux the patella laterally and synovectomy of the medial, lateral, and patellofemoral compartments was performed. The polyethylene was removed. There appeared to be no significant mechanical problem with the polyethylene. The posterior cruciate ligament was recessed off the medial femoral condyle. The posterior capsule was gently elevated with a Strong elevator. I felt that I had adequate soft tissue mobilization at this point. Pulsatile lavage was utilized. The polyethylene was then inserted taking care to avoid any soft tissue interposition. The tourniquet was deflated with less than 50 minutes total tourniquet time. The parapatellar arthrotomy was closed with running #2 Ethibond suture. The subcutaneous tissues reapproximated interrupted 2-0 Vicryl sutures. The skin was reprepped with 3-0 subcuticular to fix suture. Skin tape and glue was applied. A sterile dressing was applied. Patient was awoken from general anesthesia and transferred to recovery room in good condition. Blood loss was estimated at 50 mL. No complications were incurred. Sponge and needle counts were correct at the end of the case. Phu CARRERA assisted during the major components the case to include exposure, implantation, and closure.
[2020-10-29 09:45] LABS: Glucose,Whole Blood 297 mg/dL (75-99)
--- NOTE | 2020-10-29 10:01 | XR ---
EXAMINATION TYPE: XR knee limited LT DATE OF EXAM: 10/29/2020 CLINICAL HISTORY: Left knee pain and arthritis status post total knee replacement revision. TECHNIQUE: Portable AP and crosstable lateral views of the left knee are obtained immediately postop eratively. COMPARISON: Prior left knee x-ray June 13, 2019 FINDINGS: Metallic hardware from total left knee arthroplasty is again seen and appears satisfactory in alignment and position. There is evidence of recent surgery with diffuse subcutaneous gas and so ft tissue swelling anteriorly now identified. IMPRESSION: METALLIC HARDWARE FROM TOTAL LEFT KNEE ARTHROPLASTY IS SATISFACTORY IN ALIGNMENT.
[2020-10-29] MEDS ORDERED: INSULIN ASPART (NovoLOG) 100 UNIT/ML VIAL SQ ONE (10:09)
[2020-10-29] MEDS ORDERED: diphenhydrAMINE 50 MG/ML 1 ML VIAL IVP ONE (10:12)
[2020-10-29 11:11] LABS: Glucose,Whole Blood 321 mg/dL (75-99)
[2020-10-29] MEDS: INSULIN ASPART (NovoLOG) 100 UNIT/ML VIAL SQ SCH ×3 (12:43→20:49)
--- NOTE | 2020-10-29 15:04 | P.CONS ---
History of Present Illness - Reason for Consult Hypertension and diabetes mellitus - History of Present Illness Issue pleasant 70-year-old the male admitted for elective left knee arthroplasty. Patient is successfully underwent surgery. Patient has adductor canal catheter for pain management. Patient is getting currently well pain is well-controlled did not pass gas yet. Patient fully catheter was removed patient any fever chest nausea vomiting abdominal pain dysuria Review of Systems REVIEW OF SYSTEMS: CONSTITUTIONAL: No fever, no malaise, no fatigue. HEENT: No recent visual problems or hearing problems. Denied any sore throat. CARDIOVASCULAR: No chest pain, orthopnea, PND, no palpitations, no syncope. PULMONARY: No shortness of breath, no cough, no hemoptysis. GASTROINTESTINAL: No diarrhea, no nausea, no vomiting, no abdominal pain. NEUROLOGICAL: No headaches, no weakness, no numbness. HEMATOLOGICAL: Denies any bleeding or petechiae. GENITOURINARY: Denies any burning micturition, frequency, or urgency. MUSCULOSKELETAL/RHEUMATOLOGICAL: Denies any joint pain, swelling, or any muscle pain. ENDOCRINE: Denies any polyuria or polydipsia. The rest of the 14-point review of systems is negative. 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, HEARING LOSS 45-50% IN BOTH EARS, fully vaccinated for covid History of Any Multi-Drug Resistant Organisms: None Reported Past Surgical History: Appendectomy, Cholecystectomy, Joint Replacement, Orthopedic Surgery Additional Past Surgical History / Comment(s): LEFT KNEE ARTHROSCOPY, total left knee replacement, RIGHT SHOULDER ARTHROSCOPY, left knee manipulations x2 Past Anesthesia/Blood Transfusion Reactions: No Reported Reaction Smoking Status: Former smoker - Past Family History Father Family Medical History: Cancer Mother Family Medical History: Cancer Medications and Allergies Home Medications Medication Instructions Recorded Confirmed Type Levothyroxine Sodium [Synthroid] 75 mcg PO QAM 02/05/15 10/25/20 History Rosuvastatin Calcium 5 mg PO QAM 06/08/19 10/25/20 History lisinopriL [Zestril] 2.5 mg PO QAM 06/08/19 10/25/20 History metFORMIN HCL [Glucophage] 1,000 mg PO QAM 06/08/19 10/25/20 History Pioglitazone [Actos] 30 mg PO QAM 11/03/19 10/25/20 History Allergies Allergy/AdvReac Type Severity Reaction Status Date / Time propoxyphene HCl AdvReac Unknown Nausea & Verified 10/29/20 06:21 [From Darvon] Vomiting Physical Exam Vitals: Vital Signs Temp Pulse Pulse Resp BP Pulse Ox 10/29/20 14:02 128/72 10/29/20 11:05 97.5 F L 58 L 18 125/79 95 10/29/20 10:30 65 16 128/77 93 L 10/29/20 10:15 73 16 141/79 91 L 10/29/20 10:05 74 16 141/85 92 L 10/29/20 09:50 60 16 147/91 98 10/29/20 09:35 56 L 16 125/67 97 10/29/20 09:23 97.8 F 59 L 16 125/70 98 10/29/20 07:40 66 16 119/68 99 10/29/20 06:28 98.9 F 72 16 129/78 97 Intake and Output 10/28/20 10/29/20 10/29/20 22:59 06:59 14:59 Intake Total 1900 Output Total 50 Balance 1850 Intake: IV 1900 Output: Estimated Blood Loss 50 Other: Weight 102.8 kg PHYSICAL EXAMINATION: GENERAL: The patient is alert and oriented x3, not in any acute distress. Well developed, well nourished. HEENT: Pupils are round and equally reacting to light. EOMI. No scleral icterus. No conjunctival pallor. Normocephalic, atraumatic. No pharyngeal erythema. No thyromegaly. CARDIOVASCULAR: S1 and S2 present. No murmurs, rubs, or gallops. PULMONARY: Chest is clear to auscultation, no wheezing or crackles. ABDOMEN: Soft, nontender, nondistended, normoactive bowel sounds. No palpable organomegaly. MUSCULOSKELETAL: No joint swelling or deformity. Left knee postsurgically packed and does have catheter for pain management EXTREMITIES: No cyanosis, clubbing, or pedal edema. NEUROLOGICAL: Gross neurological examination did not reveal any focal deficits. SKIN: No rashes. Results Labs: Abnormal Lab Results - Last 24 Hours (Table) 10/29/20 10/29/20 10/29/20 Range/Units 06:54 09:42 11:10 POC Glucose (mg/dL) 233 H 297 H 321 H (75-99) mg/dL Assessment and Plan Plan: Type 2 diabetes mellitus: Patient was resumed on Actos and sliding scale metformin will be held. His blood sugars are high -Hypertension hold off on low-dose of lisinopril with concerns of perioperative hypotension -Hyperlipidemia: Patient was resumed on the rosuvastatin -Left knee arthroplasty patient pain is well-controlled and patient is presently on Xarelto for DVT prophylaxis
--- NOTE | 2020-10-29 15:44 | P.ANPRN ---
Procedure Note - Anesthesia - Nerve Block Performed Left Adductor Canal Infusion Time Out Performed: Yes (0722) Date of Procedure: 10/29/20 Location of Patient: PreOp Indication: Acute Post-Operative Pain, Dx/Pain Location (Left Knee), Requested by Surgeon Specifically requested for management of pain by DrJacy: Judah Quevedo Sedation Type: Sedate with meaningful contact maintained Preparation: Sterile Prep, Sterile Dressing Position: Supine Catheter: Indwelling Needle Types: Pajunk Needle Gauge: 18, 20 Ultrasound used to visualize needle placement: Yes Ultrasound used to observe medication spread: Yes Injectate: 0.5% Ropivacaine (see comment for volume) (20cc) Blood Aspirated: No Pain Paresthesia on Injection Noted: No Resistance on Injection: Normal Image Stored and Saved: Yes Events: Uneventful and Well Tolerated Left iPack Single Date of Procedure: 10/29/20 Location of Patient: PreOp Indication: Requested by Surgeon Specifically requested for management of pain by DrJacy: Judah Quevedo Sedation Type: Sedate with meaningful contact maintained Preparation: Sterile Prep Position: Right Lateral Catheter: None Needle Types: Pajunk Needle Gauge: 21 Ultrasound used to visualize needle placement: Yes Ultrasound used to observe medication spread: Yes Injectate: 2.0% Lidocaine (see comment for volume) (15cc) Blood Aspirated: No Pain Paresthesia on Injection Noted: No Resistance on Injection: Normal Image Stored and Saved: Yes Events: Uneventful and Well Tolerated
[2020-10-29 17:08] LABS: Glucose,Whole Blood 335 mg/dL (75-99)
[2020-10-29 20:07] LABS: Glucose,Whole Blood 222 mg/dL (75-99)
[2020-10-29 20:37] VITALS: RESP 16
[2020-10-29] MEDS ORDERED: SENNOSIDES-DOCUSATE SODIUM 1 EACH TAB PO SCH (21:00)
[2020-10-30 04:06] LABS: Basophils % (A) 0 %; Eosinophils # (A) 0.1 k/uL (0-0.7); Eosinophils % (A) 1 %; HCT 37.2 % (39.0-53.0); HGB 12.9 gm/dL (13.0-17.5); Lymphocytes # (A) 1.9 k/uL (1.0-4.8); Lymphocytes % (A) 17 %; MCH 29.4 pg (25.0-35.0); MCHC 34.6 g/dL (31.0-37.0); MCV 85.1 fL (80.0-100.0); Mean Platelet Volume 6.7; Monocytes # (A) 0.8 k/uL (0-1.0); Monocytes % (A) 7 %; Neutrophils # (A) 8.3 k/uL (1.3-7.7); Neutrophils % (A) 74 %; Platelet Count 196 k/uL (150-450); RBC 4.37 m/uL (4.30-5.90); RDW 13.7 % (11.5-15.5); WBC 11.3 k/uL (3.8-10.6)
[2020-10-30 05:15] VITALS: BP 117/71; PULSE 91; TEMP 97.7
[2020-10-30] MEDS ORDERED: LEVOTHYROXINE 75 MCG TAB PO SCH (06:30)
[2020-10-30] MEDS: HYDROcodone/APAP 5-325MG 1 EACH TAB PO PRN ×2 (06:58→12:27)
[2020-10-30 07:14] LABS: Glucose,Whole Blood 182 mg/dL (75-99)
[2020-10-30] MEDS: INSULIN ASPART (NovoLOG) 100 UNIT/ML VIAL SQ SCH ×2 (08:04→12:31)
[2020-10-30] MEDS ORDERED: ATORVASTATIN 10 MG TAB PO SCH (09:00)
[2020-10-30] MEDS ORDERED: PIOGLITAZONE 30 MG TAB PO SCH (09:00)
[2020-10-30] MEDS ORDERED: RIVAROXABAN 10 MG TAB PO SCH (09:00)
--- NOTE | 2020-10-30 09:16 | P.PN ---
Subjective Progress Note Date: 10/30/20 Principal diagnosis: Status post revision left total knee arthroplasty patient was examined today at bedside, he is resting comfortably. His pain is well-controlled. He is ambulating with no difficulty. He is having no issues urinating at this time. Denies any headaches, lightheadedness, chest pain or shortness of breath. Objective - Vital Signs Vital signs: Vital Signs Temp 97.7 F 10/30/20 05:00 Pulse 91 10/30/20 05:00 Resp 16 10/30/20 05:00 BP 117/71 10/30/20 05:00 Pulse Ox 97 10/30/20 05:00 Intake & Output 10/29/20 10/30/20 10/30/20 18:59 06:59 18:59 Intake Total 1900 Output Total 50 Balance 1850 Intake: IV 1900 Output: Estimated Blood Loss 50 Other: Voiding Method Toilet # Voids 2 3 - Exam Left lower extremity: Incision is clean, dry, and intact. The exofin fusion tape is in good condition. There is minimal soft tissue swelling and ecchymosis surrounding the medial and lateral aspects of the incision. Calf is soft, no tenderness with palpation. Plantar flexion, dorsiflexion, EHL, FHL are intact. Sensory exam to light touch throughout the extremity is intact, dorsal pedis pulses 2+. - Labs CBC & Chem 7: 10/30/20 03:34 Labs: Abnormal Lab Results - Last 24 Hours (Table) 10/29/20 10/29/20 10/29/20 Range/Units 09:42 11:10 17:06 WBC (3.8-10.6) k/uL Hgb (13.0-17.5) gm/dL Hct (39.0-53.0) % Neutrophils # (1.3-7.7) k/uL POC Glucose (mg/dL) 297 H 321 H 335 H (75-99) mg/dL 10/29/20 10/30/20 10/30/20 Range/Units 20:05 03:34 07:12 WBC 11.3 H (3.8-10.6) k/uL Hgb 12.9 L (13.0-17.5) gm/dL Hct 37.2 L (39.0-53.0) % Neutrophils # 8.3 H (1.3-7.7) k/uL POC Glucose (mg/dL) 222 H 182 H (75-99) mg/dL Assessment and Plan Assessment: Postoperative day #1 status post revision left total knee arthroplasty Plan: Pain control, plan for discharge home on [place] 5 mg/325 mg DVT prophylaxis, aspirin 81 mg twice a day for at least 2 weeks Wound care instructions were discussed Ice and elevation techniques discussed Plan for home physical therapy for one week Home CPM Medical recommendations Discharge planning: Patient will be discharged home today Time with Patient: Less than 30
--- NOTE | 2020-10-30 09:18 | P.DS ---
Providers Date of admission: 10/29/2020 Expected date of discharge: 10/30/20 Attending physician: Judah Quevedo Consults: 10/29/20 09:09 Consult Physician Routine Consulting Provider: Soha Ross Consult Reason/Comments: Medical Management; s/p revision left total knee arthroplasty Do you want consulting provider notified?: Yes Primary care physician: Elisa Acosta Hospital Course: Date of admission: 10/29/2020 Date of discharge: 10/30/2020 Admission diagnosis: Status post revision left total knee arthroplasty Discharge diagnosis: Same Attending physician: Dr. Zavala Surgical procedures: Revision left total knee arthroplasty Brief history: Patient is a 70-year-old male with a history of a previous left total knee arthroplasty. At this point patient has failed conservative treatment measures and has opted to proceed with a elective revision left total knee arthroplasty. Hospital course: Details of patient's surgery can be found in operative report. Patient tolerated the procedure well and was subsequently transported to orthopedic floor. Patient's orthopeidc and medical care was provided daily. Patient had daily laboratory tests performed for evaluation of overall blood counts. Patient had daily physical therapy to include strengthening range of motion as well as education with walker ambulation. Patient was treated with Xarelto for their postoperative DVT prophylaxis during their inpatient stay. Patient was noted to have a relatively uneventful postoperative course. Patient reported satisfactory pain control with oral pain medications by postoperative day 0. Patient showed satisfactory progress with physical therapy. Patient moved steadily through the program and had no difficulty meeting the goals by postoperative day 1. Given patient's otherwise satisfactory course and having met physical therapy goals, plan is to discharge patient home on postoperative day 1. Discharge condition/disposition: Patient will be discharged home in stable condition. Discharge medications: Instructions are given on resumption of patient's normal daily medications per primary care recommendation, in addition patient will be prescribed [place] 5 mg/325 mg, Colace 100 mg, aspirin 81 mg. Discharge instructions: 1. Wound care and infection precautions, keep incision dry and covered while showering, no lotions, creams, moisturizers. No soaking, tubs, pools, hottubs. Do not scrub over the incision. 2. Weight-bear as tolerated with walker / cane until follow-up. 3. Ice and elevate when necessary. Do not exceed 20 minutes per hour with ice pack. 4. Utilize compression sleeve until seen at first follow up appointment. 5. Visiting nursing care. 6. Home physical therapy including home CPM. 7. Pain meds and anticoagulants per prescription. 8. Pain medication has potential to cause constipation. Increase oral fluid and fiber intake. Contact primary care provider if you have not had a bowel movement within 48 hours after discharge 9. No anti-inflammatory medication until discussed at first post operative visit, this including Motrin, Aleve, Mobic, Diclofenac. 10. Follow up in office at 2 weeks postop with Carlos Veras PA-C/Phu Manuel 11. Follow up with your primary care doctor 7-10 days after discharge. 12. Contact [facility] with any questions, . Procedures: Revision left total knee arthroplasty Patient Condition at Discharge: Good Plan - Discharge Summary Discharge Rx Participant: Yes New Discharge Prescriptions: New Docusate [Colace] 100 mg PO DAILY #21 capsule HYDROcodone/APAP 5-325MG [[place] 5-325] 1 tab PO Q6HR PRN 7 Days #28 tab PRN Reason: Pain Aspirin [Adult Low Dose Aspirin EC] 81 mg PO BID #60 tablet. No Action Levothyroxine Sodium [Synthroid] 75 mcg PO QAM Rosuvastatin Calcium 5 mg PO QAM lisinopriL [Zestril] 2.5 mg PO QAM metFORMIN HCL [Glucophage] 1,000 mg PO QAM Pioglitazone [Actos] 30 mg PO QAM Discharge Medication List Levothyroxine Sodium [Synthroid] 75 mcg PO QAM 02/05/15 [History] Rosuvastatin Calcium 5 mg PO QAM 06/08/19 [History] lisinopriL [Zestril] 2.5 mg PO QAM 06/08/19 [History] metFORMIN HCL [Glucophage] 1,000 mg PO QAM 06/08/19 [History] Pioglitazone [Actos] 30 mg PO QAM 11/03/19 [History] Aspirin [Adult Low Dose Aspirin EC] 81 mg PO BID #60 tablet. 10/30/20 [Rx] Docusate [Colace] 100 mg PO DAILY #21 capsule 10/30/20 [Rx] HYDROcodone/APAP 5-325MG [[place] 5-325] 1 tab PO Q6HR PRN 7 Days #28 tab 10/30/20 [Rx] Follow up Appointment(s)/Referral(s): Yoandy Veras PAC [PH[employer]IAN [employer]] - 1 Week Activity/Diet/Wound Care/Special Instructions: Orthopedic Discharge Instructions: 1. Wound care and infection precautions, keep incision dry and covered while showering, no lotions, creams, moisturizers. No soaking, pools, hot tubs. Do not scrub over incision. 2. Weight-bear as tolerated with walker / cane until follow-up. 3. Ice and elevate when necessary. Do not exceed 20 minutes per hour with ice pack. 4. Utilize compression sleeve until seen at first follow up appointment. 5. Pain meds and anticoagulants per prescription. 6. Pain medication has potential to cause constipation. Increase oral fluid and fiber intake. Contact primary care provider if you have not had a bowel movement within 48 hours after discharge. 7. No anti-inflammatory medication until discussed at first post operative visit, this including Motrin, Aleve, Mobic, Diclofenac. 8. Follow up in office at 2 weeks postop with Carlos Veras PA-C/Phu Long PA-C 9. Follow up with your primary care doctor 7-10 days after discharge. 10. Contact [facility] with any questions, . Discharge Disposition: HOME WITH HOME HEALTH SERVICES
[2020-10-30 11:25] LABS: Glucose,Whole Blood 344 mg/dL (75-99)
--- NOTE | 2020-10-30 11:51 | P.PN ---
Progress Note - Text Patient was seen at 7:05 AM Postoperative day # 1 status post total knee arthroplasty, on adductor canal perineural catheter placed for postoperative analgesia. Ropivacaine 0.2% 8 mL per hour through ON-Q pump continuous infusion. Pain is well controlled. On visual analog scale 1/10 Patient is taking PRN oral pain medications. Catheter site: Looks Ok. There is no erythema or tenderness. Continue with the current pain management plan and will follow.
--- NOTE | 2020-10-30 14:18 | P.PN ---
Subjective Progress Note Date: 10/30/20 - Reason for Consult Hypertension and diabetes mellitus - History of Present Illness Issue pleasant 70-year-old the male admitted for elective left knee arthroplasty. Patient is successfully underwent surgery. Patient has adductor canal catheter for pain management. Patient is getting currently well pain is well-controlled did not pass gas yet. Patient fully catheter was removed patient any fever chest nausea vomiting abdominal pain dysuria 10/30/2020 Patient is seen and evaluated in follow-up this morning with no acute overnight issues. Blood sugars were slightly elevated and maintained on sliding scale and metformin was being held and instructed the patient to resume normal dosing and continue to monitor Accu-Cheks at home. Also instructed continue with consistent carbohydrate diet and discuss with primary care provider about blood sugars. Patient is currently up and walking with a walker with no difficulties. Left knee surgical dressing is dry and intact with pain pump noted. Review of systems: Constitutional: No reports of fatigue, fever, or chills Cardiovascular: No reports of chest pain or palpitations Respiratory: No reports of shortness of breath or cough GI: No reports of nausea, vomiting, or diarrhea : No reports of dysuria or retention Neurovascular: No reports of weakness or numbness All medications have been reviewed Objective - Vital Signs Vital signs: Vital Signs Temp 97.7 F 10/30/20 05:00 Pulse 91 10/30/20 05:00 Resp 16 10/30/20 05:00 BP 117/71 10/30/20 05:00 Pulse Ox 97 10/30/20 05:00 Intake & Output 10/29/20 10/30/20 10/30/20 18:59 06:59 18:59 Intake Total 1900 Output Total 50 Balance 1850 Intake: IV 1900 Output: Estimated Blood Loss 50 Other: Voiding Method Toilet Toilet # Voids 2 3 - Exam GENERAL: The patient is alert and oriented x3, not in any acute distress. Well developed, well nourished. HEENT: Pupils are round and equally reacting to light. EOMI. No scleral icterus. No conjunctival pallor. Normocephalic, atraumatic. No pharyngeal erythema. No thyromegaly. CARDIOVASCULAR: S1 and S2 present. No murmurs, rubs, or gallops. PULMONARY: Chest is clear to auscultation, no wheezing or crackles. ABDOMEN: Soft, nontender, nondistended, normoactive bowel sounds. No palpable organomegaly. MUSCULOSKELETAL: No joint swelling or deformity. Left knee postsurgically dressing is dry and intact and does have catheter for pain management EXTREMITIES: No cyanosis, clubbing, or pedal edema. NEUROLOGICAL: Gross neurological examination did not reveal any focal deficits. SKIN: No rashes. - Labs CBC & Chem 7: 10/30/20 03:34 Labs: Abnormal Lab Results - Last 24 Hours (Table) 10/29/20 10/29/20 10/30/20 Range/Units 17:06 20:05 03:34 WBC 11.3 H (3.8-10.6) k/uL Hgb 12.9 L (13.0-17.5) gm/dL Hct 37.2 L (39.0-53.0) % Neutrophils # 8.3 H (1.3-7.7) k/uL POC Glucose (mg/dL) 335 H 222 H (75-99) mg/dL 10/30/20 10/30/20 Range/Units 07:12 11:23 WBC (3.8-10.6) k/uL Hgb (13.0-17.5) gm/dL Hct (39.0-53.0) % Neutrophils # (1.3-7.7) k/uL POC Glucose (mg/dL) 182 H 344 H (75-99) mg/dL Assessment and Plan Assessment: -Type 2 diabetes mellitus: Patient was resumed on Actos and sliding scale metformin was held. His blood sugars are elevated and instructed the patient to resume normal medications at home -Hypertension, was held status post surgery and instructed patient to resume normal dosing upon discharge -Hyperlipidemia: Continue rosuvastatin -Left knee arthroplasty patient pain is well-controlled and patient is presently on Xarelto for DVT prophylaxis plan: Continue with current medications and continue to monitor blood sugars. Instructed the patient to resume antihypertensive medications and okay to resume metformin once home. Patient is being discharged today by orthopedics and will follow-up with his primary care provider. Instructed the patient to continue with consistent carb diet and monitor blood sugars and discuss with primary care provider at follow-up visit. Will continue to follow during hospitalization. Thank you for this consultation.
== END 2020-10-30 13:10 | disposition home health service (06) ==
LOC: OR 06:03 → 5NMEDONC 10:31 → OR 10-30 13:10
PROVIDERS: ATTEND Orthopaedic Surgery
DX: M24.662 Ankylosis, left knee (principal); Z96.652 Presence of left artificial knee joint; J44.9 Chronic obstructive pulmonary disease, unspecified; E11.9 Type 2 diabetes mellitus without complications; E03.9 Hypothyroidism, unspecified; I10 Essential (primary) hypertension; Z20.822 Contact with and (suspected) exposure to COVID-19; E78.5 Hyperlipidemia, unspecified; Q85.00 Neurofibromatosis, unspecified; Z90.89 Acquired absence of other organs; Z90.49 Acquired absence of other specified parts of digestive tract; Z98.890 Other specified postprocedural states; Z80.9 Family history of malignant neoplasm, unspecified; Z87.891 Personal history of nicotine dependence; Z97.2 Presence of dental prosthetic device (complete) (partial); Z79.84 Long term (current) use of oral hypoglycemic drugs; Z79.899 Other long term (current) drug therapy; Z88.5 Allergy status to narcotic agent
CPT/HCPCS: 97162; 64999; 64448; 76942; 85025; 87635; 73560; 27486; C1776; J2250; J1200; J1100; J2710; J0690; J2405; J2001; J3010; J1170; J2795 ×2; J0330; J2704

== ENCOUNTER → 2023-08-02 | Outpatient (CLI) | payer MEDICARE ==
--- NOTE | 2023-08-02 21:44 | FL ---
EXAMINATION TYPE: FL barium swallow DATE OF EXAM: 08/02/2023 COMPARISON: None HISTORY: Dysphasia needing to clear her throat constantly TECHNIQUE: A double air contrast UGI study is performed. FINDINGS: Contrast passes through the esophagus without hesitancy. No filling defects are evident. No focal stenosis is identified. A secondary contraction was observed during the study. Mild presbyesophagus may be present. Overhead radiographs were obtained which are unremarkable. IMPRESSION: 1. Mild presbyesophagus. 2. No focal stenosis or reflux.
== END | disposition home or self-care (01) ==
LOC: RADUSWWP 10:37
PROVIDERS: ATTEND Otolaryngology
DX: K22.89 Other specified disease of esophagus (principal); R13.19 Other dysphagia
CPT/HCPCS: 74220

== ENCOUNTER → 2024-12-05 | Outpatient (CLI) | payer MEDICARE ==
--- NOTE | 2024-12-05 07:58 | US ---
EXAMINATION TYPE: US Aorta Screening DATE OF EXAM: 12/05/2024 COMPARISON: NONE CLINICAL INDICATION: Male, 74 years old with history of Z13.6 ENCOUNTER FOR SCREENING FOR CARDIOVASCU LAR D; aorta screening TECHNIQUE: Multiple sonographic images of the abdominal aorta are obtained with grayscale and color D oppler imaging. FINDINGS: EXAM MEASUREMENTS: Abdominal Aorta: Proximal: 2.3 x 2.3cm Mid: 2.0 x 2.5cm Distal: 2.0 x 1.7cm Bifurcation: Right Iliac: 1.3 x 1.4cm Left Iliac: 1.4 x 1.3cm MANUFACTURING CLERK NOTES: Prox and mid aorta slightly limited due to excessive bowel gas. No AAA seen on silvino borja's study. IMPRESSION: > 2.5 to 3.0 cm Abdominal aortic aneurysm. Recommendation: Repeat Ultrasound in 10 year per Society o f Vascular Surgery Recommendations. [email or web address] [facility], , 12/05/2024 7:56 AM
== END | disposition home or self-care (01) ==
LOC: RADUSWWP 07:17
PROVIDERS: ATTEND Family Medicine
DX: Z13.6 Encounter for screening for cardiovascular disorders (principal); I71.40 Abdominal aortic aneurysm, without rupture, unspecified
CPT/HCPCS: 76706